=== PATIENT | female | born 1980 | race American Indian/Alaskan Native ===

== ENCOUNTER 2017-11-19 00:53 | Emergency (ER) | payer MEDICAID ==
[2017-11-19] MEDS ORDERED: QUELICIN ONE (00:59)
[2017-11-19] MEDS ORDERED: AMIDATE IV ONE (00:59)
[2017-11-19] MEDS ORDERED: NACL 0.9% 1000 ML 1,000 ML IV ONE (01:00)
--- NOTE | 2017-11-19 01:26 | Emergency Department Report ---
HPI - General Chief Complaint: Cardiac Arrest/CPR Time Seen by Provider: 11/19/17 00:53 - HPI HPI: The patient is a 37-year-old female presents via EMS in cardiac arrest. Per EMS the patient was found on scene hyperventilating, in respiratory distress, complaining of severe dyspnea. While on scene, EMS reports that the patient became unresponsive, developed bradycardia, and went into cardiac arrest 20 - 30 minutes prior to arrival to the ED. EMS reports providing the patient multiple rounds of CPR and medications per ACLS guidelines during transport. EMS states that return of spontaneous circulation was unable to be obtained during transport of the patient to the emergency department. ED Review of Systems ROS: Stated complaint: CARDIAC ARREST Other details as noted in HPI Comment: Unobtainable due to pts medical conditions (patient unresponsive) Physical Exam - Physical Exam Physical Exam: Physical Exam: General: well-nourished, well-developed, morbidly obese Head: Normocephalic, right periorbital swelling present Eyes: Pupils were wide dilated and fixed, unresponsive to light ENT: combitube present in mouth Neck: trachea is midline, no tracheal deviation appreciable, no appreciable carotid bruit or thrill Respiratory: Breath sounds equal bilaterally with bagging/assisted ventilations Cardio: No distal pulses, extremities cold to touch Abdomen: soft abdomen, no obvious distention, no epigastric breath sounds with assisted ventilation Musc: No pitting edema Skin: No rash Neuro: Patient unresponsive to verbal or tactile stimuli, no abnormal tonicity or posturing ED Medical Decision Making - Medical Decision Making On arrival, the patient was found to be unresponsive in cardiac arrest, with initial monitor rhythm exhbiting asystole. CPR was immediately continued and the patient was given epinephrine. Rapid sequence intubation was performed by myself while CPR was continued. A normal saline fluid bolus was initiated as well. The patient was also given an amp of bicarbonate and calcium chloride during resuscitation. Multiple rounds of CPR and ACLS medications were given to the patient in this emergency department. Despite multiple rounds of CPR and medications per ACLS guidlines, the patient remained without pulse and in cardiac arrest. As the patient has wide and fixed dilated pupils bilaterally, and has been in cardiac arrest for greater than 40 minutes, the patient has poor chance of return of spontaneous circulation. The resuscitation team was queried regarding additional resuscitation efforts. No further ideas were volunteered. The resuscitation team agreed that best efforts to resuscitate the patient have been made. The resuscitation code is discontinued and the patient is pronounced . Family members are informed of the patient's passing. Critical care attestation.: If time is entered above; I have spent that time in minutes in the direct care of this critically ill patient, excluding procedure time. ED Disposition Clinical Impression: Cardiac arrest Disposition: DC-20 Is pt being admited?: No Does the pt Need Aspirin: No Condition: Critical Time of Disposition: 01:20
[2017-11-19] MEDS ORDERED: CALCIUM CHLORIDE IV ONE (07:13)
[2017-11-19] MEDS ORDERED: ADRENALIN ONE (07:13)
[2017-11-19] MEDS ORDERED: SODIUM BICARBONATE IV ONE (07:13)
== END 2017-11-19 04:00 ==
LOC: ED 00:53
DX: I46.9 Cardiac arrest, cause unspecified (principal)
CPT/HCPCS: 92950; 99285; J0171; J0330